=== PATIENT | female | born 1940 | race Caucasian/White ===

== ENCOUNTER 2017-04-08 13:30 | Inpatient (IN) | payer MEDICARE, BC ==
[~2017-04-08] VITALS: Ht 162.6 cm; Wt 135.2 kg
[2017-04-08] MEDS ORDERED: CEPHALEXIN CAP 500MG PO (13:51)
[2017-04-08] MEDS ORDERED: METFORMIN TAB 1000MG PO (13:51)
[2017-04-08] MEDS ORDERED: [UNRECOGNIZED DRUG - CODE] TOP (13:51)
[2017-04-08] MEDS ORDERED: METOPROLOL SUCC ER 50 MG TAB PO (13:51)
[2017-04-08] MEDS ORDERED: LEVOTHYROXINE 125 MCG PO (13:51)
[2017-04-08] MEDS ORDERED: FLUCONAZOLE 100 MG PO (13:51)
[2017-04-08] MEDS ORDERED: DILTIAZEM 24HR ER 240 MG CAP PO (13:51)
[2017-04-08] MEDS ORDERED: PHENAZOPYRIDINE HCL 100 MG TABLET PO ONE (14:45)
--- NOTE | 2017-04-08 14:50 | NUR ---
Pt states she is unable to provide urine specimen at this time.
[2017-04-08] MEDS ORDERED: PHENAZOPYRIDINE HCL 100 MG TABLET ONE (15:03)
[2017-04-08 15:21] LABS: BASOPHILS % (AUTO) 0.9 % (0.0-2.0); EOSINOPHILS # (AUTO) 0.1 K/uL (0.0-0.7); EOSINOPHILS % (AUTO) 2.3 % (0.0-7.0); HEMATOCRIT 39.9 % (37-47); HEMOGLOBIN 13.1 G/DL (12.0-16.0); LYMPHOCYTES # (AUTO) 1.5 K/UL (0.8-4.8); LYMPHOCYTES % (AUTO) 29.3 % (20.5-51.5); MEAN CORPUSCULAR HEMOGLOBIN 29.7 UUG (27.0-31.0); MEAN CORPUSCULAR HGB CONC 33 g/dL (32.0-37.0); MEAN CORPUSCULAR VOLUME 90.7 FL (81.0-99.0); MONOCYTES # (AUTO) 0.5 K/UL (0.1-1.30); MONOCYTES % (AUTO) 9.3 % (0.0-11.0); NEUTROPHILS # (AUTO) 3.2 K/UL (1.8-8.9); NEUTROPHILS % (AUTO) 58.2 % (38.5-71.5); PLATELET COUNT (AUTO) 210 K/UL (150-450); WHITE BLOOD COUNT (AUTO) 5.3 K/UL (4.0-11.2)
[2017-04-08 15:27] LABS: CARBON DIOXIDE 29 mmol/L (21-32); CHLORIDE 106 mmol/L (98-107); CREATININE 1.2 mg/dL (0.6-1.3); GLUCOSE 207 mg/dL (74-106); POTASSIUM 4.4 mmol/L (3.5-5.1); UREA NITROGEN, BLOOD 30 mg/dL (7-18)
[2017-04-08] MEDS ORDERED: IV NORMAL SALINE 250 ML IV ONE (15:30)
[2017-04-08] MEDS ORDERED: NORMAL SALINE FLUSH 10 ML DISP.SYRIN ONE (15:30)
[2017-04-08] MEDS ORDERED: IOHEXOL 350 100 ML INFUS..BTL ONE (15:30)
[2017-04-08 15:39] LABS: ALANINE AMINOTRANSFERASE 19 U/L (14-59); ALKALINE PHOSPHATASE 77 U/L (50-136); ASPARTATE AMINOTRANSFERASE 16 U/L (15-37); BILIRUBIN,DIRECT 0.2 mg/dL (0.0-0.2); BILIRUBIN,TOTAL 0.8 mg/dL (0.2-1.0); TOTAL PROTEIN, SERUM 7.4 g/dL (6.4-8.2)
--- NOTE | 2017-04-08 16:00 | NUR ---
Pt to CT via TOSHIA bernabe noted at this time.
--- NOTE | 2017-04-08 17:00 | NUR ---
Pt is sleeping with no s/s of acute distress noted.
--- NOTE | 2017-04-08 17:47 | NUR ---
Pt resting in [facility] with NAD noted, disposition pending.
--- NOTE | 2017-04-08 18:10 | NUR ---
Pt ambulatory to restroom with walker, urine specimen obtained and sent to lab.
--- NOTE | 2017-04-08 18:30 | NUR ---
Per Dr. Ann pt to be admitted to tele, Dr. Victor accepting physician.
[2017-04-08 18:36] LABS: *BILIRUBIN,URIN NEGATIVE (NEGATIVE); *BLOOD, URINE NEGATIVE (NEGATIVE); *CLARITY,URINE SLIGHTLY CLOUDY (CLEAR); *COLOR,URINE DARK YELLOW (YELLOW); *KETONES,URINE NEGATIVE (NEGATIVE); *PROTEIN,URINE NEGATIVE (NEGATIVE); *UROBILINOGEN,URINE 0.2 E.U./dl (NORMAL); LEUKOCYTE ESTERASE ,URINE NEGATIVE (NEGATIVE); NITRITE, URINE POSITIVE (NEGATIVE); PH,URINE 5.5 (5.0-8.0); UGLUCOSE TRACE (NEGATIVE)
[2017-04-08] MEDS ORDERED: ASPIRIN 325 MG TABLET PO ONE (18:45)
[2017-04-08 18:46] LABS: RBC,URINE 0-3 /HPF (0-3); SQUAMOUS EPITHELIAL CELL,UR FEW /HPF (NONE SEEN); WBC,URINE 0-3 /HPF (0-3)
[2017-04-08 18:47] LABS: BACTERIA,URINE MODERATE /HPF (NONE SEEN)
[2017-04-08] MEDS ORDERED: ONDANSETRON 4 MG/2 ML VIAL IV PRN (19:45)
[2017-04-08] MEDS ORDERED: ACETAMINOPHEN 325 MG TABLET PO PRN (19:45)
[2017-04-08] MEDS ORDERED: HYDROCODONE/APAP 5-325MG TABLET PO PRN (19:45)
[2017-04-08] MEDS ORDERED: MAGNESIUM HYDROXIDE 30 ML LIQUID UDC PO PRN (19:45)
[2017-04-08] MEDS ORDERED: Z GUARD REMEDY PASTE 57 GM TUBE TOP PRN (19:45)
[2017-04-08] MEDS ORDERED: ASPIRIN 325 MG TABLET ONE (19:52)
--- NOTE | 2017-04-08 19:52 | NUR ---
Report called to [facility] Handy. Preparing to transfer pt to the floor.
[2017-04-08] MEDS ORDERED: CEFTRIAXONE 1 G in IV DEXTROSE 5% 50 ML IV SCH (20:00)
[2017-04-08] MEDS ORDERED: BLOOD SUGAR DIAGNOSTIC 1 EACH STRIP VI SCH (20:00)
[2017-04-08] MEDS ORDERED: hydrALAZINE HCL 25 MG TABLET PO PRN (20:00)
[2017-04-08 20:45] VITALS: BP 143/43
--- NOTE | 2017-04-08 20:50 | NUR ---
NSG: PT RECEIVED A/O X 4 FR ER VIA GURNEY WITH DX OF TIA. DENIES ANY DISCOMFORT, FACIAL NUMBNESS, TINGLING. NO S/S OF NEUROLOGICAL DEFICIT. V/S STABLE. CONT TO MONITOR.
[2017-04-08] MEDS ORDERED: FURO-151 PO (21:09)
[2017-04-08] MEDS: ENOXAPARIN SODIUM 40 MG/0.4 ML DISP.SYRIN SQ SCH ×2 (21:45→22:40)
[2017-04-08] MEDS ORDERED: CEFTRIAXONE 1 G VIAL ONE (22:33)
[2017-04-08] MEDS: METOPROLOL TARTRATE 25 MG TABLET PO SCH (22:39)
[2017-04-08] MEDS: ATORVASTATIN 20 MG TABLET PO SCH (22:39)
[2017-04-08] MEDS: FUROSEMIDE 40 MG/4 ML VIAL IV SCH (22:40)
--- NOTE | 2017-04-08 22:40 | NUR ---
nsg: inserted f/c per md order.
[2017-04-08] MEDS ORDERED: ATORVASTATIN 20 MG TABLET ONE (22:48)
[2017-04-08] MEDS ORDERED: FUROSEMIDE 40 MG/4 ML VIAL ONE (22:48)
[2017-04-08] MEDS ORDERED: METOPROLOL TARTRATE 25 MG TABLET ONE (22:49)
[2017-04-08] MEDS ORDERED: ENOXAPARIN SODIUM 40 MG/0.4 ML DISP.SYRIN SQ ONE (22:50)
[2017-04-08] MEDS: DILTIAZEM HCL CD 240 MG CAP.SR.24H PO SCH (23:20)
[2017-04-08] MEDS: BLOOD SUGAR DIAGNOSTIC 1 EACH STRIP VI SCH (23:20)
--- NOTE | 2017-04-08 23:21 | NUR ---
nsg: pt refused acu check at this time. stated her sugar was checked in er, 137mg/dl.
[2017-04-08] MEDS ORDERED: DILTIAZEM HCL CD 240 MG CAP.SR.24H PO ONE (23:32)
[2017-04-09 00:03] VITALS: BP 132/43
[2017-04-09 04:00] VITALS: BP 117/52
--- NOTE | 2017-04-09 05:30 | NUR ---
nsg: ALL NEEDS ATTENDED. NO ACUTE DISTRESS NOTED. TELE, SINUS BRADYCARDIA WITH HR 57. CONT TO MONITOR.
[2017-04-09] MEDS: BLOOD SUGAR DIAGNOSTIC 1 EACH STRIP VI SCH ×5 (06:28→20:43)
[2017-04-09 07:04] LABS: BASOPHILS % (AUTO) 0.8 % (0.0-2.0); EOSINOPHILS # (AUTO) 0.1 K/uL (0.0-0.7); EOSINOPHILS % (AUTO) 2.6 % (0.0-7.0); HEMATOCRIT 36.6 % (31.2-41.9); HEMOGLOBIN 12.4 g/dL (10.9-14.3); LYMPHOCYTES # (AUTO) 1.4 K/uL (20.0-40.0); LYMPHOCYTES % (AUTO) 29.7 % (20.5-51.5); MEAN CORPUSCULAR HGB CONC 34 g/dL (32.3-35.6); MEAN CORPUSCULAR VOLUME 91.3 fL (75.5-95.3); MONOCYTES # (AUTO) 0.4 K/uL (2.0-10.0); MONOCYTES % (AUTO) 8.6 % (0.0-11.0); NEUTROPHILS # (AUTO) 2.7 K/uL (1.8-8.9); NEUTROPHILS % (AUTO) 58.3 % (38.5-71.5); PLATELET COUNT (AUTO) 167 K/uL (179-408); RED BLOOD CELL COUNT(AUTO) 4.01 MIL/uL (3.63-4.92); WHITE BLOOD COUNT (AUTO) 4.7 K/uL (3.8-11.8)
[2017-04-09 07:19] LABS: CARBON DIOXIDE 26 mmol/L (21-32); CHLORIDE 107 mmol/L (98-107); CHOLESTEROL 160 mg/dL (<200); CREATININE 1.2 mg/dL (0.6-1.3); GLUCOSE 147 mg/dL (74-106); HDL CHOLESTEROL 55 mg/dL (40-60); MAGNESIUM 1.9 mg/dL (1.8-2.4); PHOSPHOROUS 4.1 mg/dL (2.5-4.9); POTASSIUM 3.8 mmol/L (3.5-5.1); TRIGLYCERIDES 84 MG/DL (30-150); UREA NITROGEN, BLOOD 24 mg/dL (7-18)
--- NOTE | 2017-04-09 08:30 | NUR ---
RECEIVED PATIENT IN BED AWAKE ALERT AND ORIENTED DENIES PAIN OR DISCOMFORTS AT THIS TIME ON ROOM AIR WITH NO SHORTNESS OF BREATH PATIENT REFUSED SOME OF HER AM MEDICATIONS STATED THAT SHE WILL LET ME KNOW WHEN SHE IS READY FOR THEM.PATIENTS RIGHT TO REFUSE RESPECTED AT THIS TIME
[2017-04-09] MEDS: DILTIAZEM HCL CD 240 MG CAP.SR.24H PO SCH ×2 (08:52→17:48)
[2017-04-09] MEDS: LEVOTHYROXINE SODIUM 125 MCG TABLET PO SCH (08:52)
[2017-04-09] MEDS: FUROSEMIDE 40 MG/4 ML VIAL IV SCH ×2 (09:00→17:50)
[2017-04-09] MEDS: METOPROLOL TARTRATE 25 MG TABLET PO SCH ×2 (09:00→20:34)
[2017-04-09] MEDS: ASPIRIN 81 MG TAB.CHEW PO SCH (09:00)
[2017-04-09 11:29] VITALS: BP 120/60
--- NOTE | 2017-04-09 11:36 | NUR ---
BLOOD SUGAR AT THIS TIME IS 182 PATIENT HAS NO SLIDING SCALE COVERAGE DR REAGAN NOTIFIED AND SHE STATED WILL SEE PATIENT
[2017-04-09] MEDS ORDERED: DEXTROSE 50% 50 ML DISP.SYRIN IV PRN (12:30)
[2017-04-09] MEDS: INSULIN REGULAR, HUMAN 300 UNIT/3 ML VIAL SQ PRN ×2 (13:13→20:46)
--- NOTE | 2017-04-09 14:00 | NUR ---
BILATERAL LOWER EXT DUPLEX DONE ORDERED AWAITING FOR RESULTS.
[2017-04-09 16:11] VITALS: BP 145/62
--- NOTE | 2017-04-09 17:50 | NUR ---
PATIENT HAD REFUSED HER CARDIZEM AND LASIX THIS AM NOW WANTS THEM SO I GAVE THEM TO HER ORDERED.
--- NOTE | 2017-04-09 17:52 | NUR ---
BOTH LOWER EXT ELEVATED ON PILLOWS DUE TO EDEMA
[2017-04-09 20:07] VITALS: BP 115/62
[2017-04-09] MEDS: ATORVASTATIN 20 MG TABLET PO SCH (20:33)
[2017-04-09] MEDS: ENOXAPARIN SODIUM 40 MG/0.4 ML DISP.SYRIN SQ SCH (20:48)
[2017-04-09] MEDS: CEFTRIAXONE 1 G in IV DEXTROSE 5% 50 ML IV SCH (21:46)
[2017-04-10] VITALS: BP 122/61
[2017-04-10 04:00] VITALS: BP 118/61
[2017-04-10 06:40] LABS: BASOPHILS % (AUTO) 0.8 % (0.0-2.0); EOSINOPHILS # (AUTO) 0.1 K/uL (0.0-0.7); EOSINOPHILS % (AUTO) 3.1 % (0.0-7.0); HEMATOCRIT 36.3 % (31.2-41.9); HEMOGLOBIN 12.1 g/dL (10.9-14.3); LYMPHOCYTES # (AUTO) 1.6 K/uL (20.0-40.0); LYMPHOCYTES % (AUTO) 34.3 % (20.5-51.5); MEAN CORPUSCULAR HEMOGLOBIN 30.5 uug (24.7-32.8); MEAN CORPUSCULAR HGB CONC 33 g/dL (32.3-35.6); MEAN CORPUSCULAR VOLUME 91.4 fL (75.5-95.3); MONOCYTES # (AUTO) 0.3 K/uL (2.0-10.0); MONOCYTES % (AUTO) 7.5 % (0.0-11.0); NEUTROPHILS # (AUTO) 2.5 K/uL (1.8-8.9); NEUTROPHILS % (AUTO) 54.3 % (38.5-71.5); PLATELET COUNT (AUTO) 156 K/uL (179-408); RED BLOOD CELL COUNT(AUTO) 3.97 MIL/uL (3.63-4.92); WHITE BLOOD COUNT (AUTO) 4.6 K/uL (3.8-11.8)
[2017-04-10 06:51] LABS: CARBON DIOXIDE 28 mmol/L (21-32); CHLORIDE 106 mmol/L (98-107); CREATININE 1.1 mg/dL (0.6-1.3); GLUCOSE 147 mg/dL (74-106); POTASSIUM 3.9 mmol/L (3.5-5.1); UREA NITROGEN, BLOOD 22 mg/dL (7-18)
[2017-04-10] MEDS: BLOOD SUGAR DIAGNOSTIC 1 EACH STRIP VI SCH ×4 (07:13→20:37)
[2017-04-10] MEDS: LEVOTHYROXINE SODIUM 125 MCG TABLET PO SCH (07:15)
[2017-04-10] MEDS: INSULIN REGULAR, HUMAN 300 UNIT/3 ML VIAL SQ PRN ×2 (07:55→12:22)
[2017-04-10] MEDS: ASPIRIN 81 MG TAB.CHEW PO SCH (09:00)
[2017-04-10] MEDS: METOPROLOL TARTRATE 25 MG TABLET PO SCH ×2 (09:00→20:36)
[2017-04-10] MEDS: DILTIAZEM HCL CD 240 MG CAP.SR.24H PO SCH ×2 (09:00→18:09)
[2017-04-10] MEDS: FUROSEMIDE 40 MG/4 ML VIAL IV SCH (09:10)
--- NOTE | 2017-04-10 09:40 | NUR ---
ASSISTED TO THE BATHROOM AMBULATED USING HER W/CHAIR WALKER AND HAD A LARGE BOWEL MOVEMENT AND ASSISTED BACK INTO BED BOTH LOWER EXT STILL VERY SWOLLEN ENCOURAGED TO ELEVATE ON THE PILLOW NO SOB NOT IN DISTRESS AT THIS TIME.
[2017-04-10 12:19] VITALS: BP 139/65
--- NOTE | 2017-04-10 14:00 | NUR ---
PATIENT SEEN AND EXAMINED BY DR LUNA WITH NO NEW ORDERS AT THIS TIME.
[2017-04-10 15:17] VITALS: BP 146/65
--- NOTE | 2017-04-10 18:00 | NUR ---
YOUNG CATH REMAINS INTACT WITH ADEQUTE URINE OUTPUT NO ADVERSE OR ALLERGIC REACTIONS FROM THE ATB ORDERED.MADE COMFORTABLE.
--- NOTE | 2017-04-10 19:10 | NUR ---
Sleeping duriing initial rounds. Safety measures and fall precaution maintained. No s/s of pain/discomforts presented. Will continue to monitor.
[2017-04-10 20:22] VITALS: BP 129/51
[2017-04-10] MEDS: ATORVASTATIN 20 MG TABLET PO SCH (20:37)
[2017-04-10] MEDS: ENOXAPARIN SODIUM 40 MG/0.4 ML DISP.SYRIN SQ SCH (20:37)
--- NOTE | 2017-04-10 21:00 | NUR ---
Patient refused all meds due at this time. Metoprolol was not given due to low heart rate of 58 bpm. Will recheck again later.
[2017-04-10] MEDS: CEFTRIAXONE 1 G in IV DEXTROSE 5% 50 ML IV SCH (21:45)
--- NOTE | 2017-04-10 22:00 | NUR ---
HR rechecked, still low on the 59bpm. Patient aware. Metoprolol not given.
--- NOTE | 2017-04-11 05:07 | NUR ---
Slept well. No complaint presented all night. All needs attended and met. Safety measures and fall precaution maintained. No significant event reported. Continue current plan of care.
[2017-04-11] MEDS: LEVOTHYROXINE SODIUM 125 MCG TABLET PO SCH (06:13)
[2017-04-11] MEDS: BLOOD SUGAR DIAGNOSTIC 1 EACH STRIP VI SCH ×4 (06:17→21:19)
[2017-04-11 06:47] VITALS: BP 132/56
--- NOTE | 2017-04-11 07:45 | NUR ---
PATIENT IS AWAKE ALERT AND ORIENTED DENIES PAIN OR DISCOMFORTS AT THIS TIME ON ROOM AIR WITH NO SHORTNESS OF BREATH NO S/S OF HYPO/HYPERGLYCEMIC REACTIONS AT THIS TIME.YOUNG CATH IS INTACT WITH NO HEMATURIA. BOTH LOWER EXT REMAINS SWOLLEN ELEVATED IN 2 PILLOWS MADE COMFORTABLE.
[2017-04-11] MEDS: INSULIN REGULAR, HUMAN 300 UNIT/3 ML VIAL SQ PRN ×3 (07:59→21:22)
[2017-04-11] MEDS: METOPROLOL TARTRATE 25 MG TABLET PO SCH ×2 (09:00→21:11)
[2017-04-11] MEDS: DILTIAZEM HCL CD 240 MG CAP.SR.24H PO SCH (09:00)
[2017-04-11] MEDS: ASPIRIN 81 MG TAB.CHEW PO SCH (09:00)
[2017-04-11] MEDS: FUROSEMIDE 40 MG/4 ML VIAL IV SCH (09:16)
[2017-04-11 10:56] VITALS: BP 94/52
[2017-04-11 15:00] VITALS: BP 166/72
--- NOTE | 2017-04-11 15:30 | NUR ---
PATIENT SEEN AND EXAMINED BY DR GARCIA WITH NO NEW ORDERS AT THIS TIME DENIES PAIN OR DISCOMFORTS CONTINUE TO ENCOURAGE PATIENT TO ELEVATE BOTH LOWER EXT AND SHE EXPRESSED UNDERSTANDING
--- NOTE | 2017-04-11 17:14 | NUR ---
PATIENT STATED THAT DR GARCIA IS PLANNING TO SEND HER TO ACUTE REHAB FOR MORE PHYSICAL THERAPY AWAITING FOR ORDERS AND ACCEPTANCE BY THE REHAB
--- NOTE | 2017-04-11 18:21 | NUR ---
PATIENT SEEN AND EXAMINED BY DR OLIVARES AD WRITER WITH NEW ORDERS AND NOTED.MD AWARE THAT PATIENT IS ALESSANDRO AT TIMES WITH PARAMETERS FOR HER BETA BLOCKERS
--- NOTE | 2017-04-11 19:40 | NUR ---
PT RECEIVED IN BED, AWAKE. A/OX3. ABLE TO MAKE NEEDS KNOWN. V/S STABLE. IN NO ACUTE DISTRESS. NO C/O PAIN AT THIS TIME. IV INTACT AND PATENT. YOUNG INTACT AND PATENT, CLEAR YELLOW URINE SEEN. SAFETY MEASURES IMPLEMENTED. CALL LIGHT WITHIN REACH.
[2017-04-11 20:00] VITALS: BP 144/66
[2017-04-11] MEDS: ATORVASTATIN 20 MG TABLET PO SCH (21:10)
[2017-04-11] MEDS: CEFTRIAXONE 1 G in IV DEXTROSE 5% 50 ML IV SCH (21:11)
[2017-04-12 05:09] VITALS: BP 152/68
--- NOTE | 2017-04-12 05:45 | NUR ---
END OF SHIFT NOTES. PT SLEPT INTERMITTENTLY THROUGHOUT SHIFT. IN STABLE CONDITION. PT ACCIDENTLY PULLED OUT IV, BUT PT REFUSED IV RESTART. IV ABX INFUSED. YOUNG CATH INTACT AND PATENT, SEEN WITH CLEAR YELLOW URINE. BILATERAL LEGS ELEVATED. ALL NEEDS ATTENDED. SAFETY MAINTAINED. CALL LIGHT WITHIN REACH.
[2017-04-12] MEDS: LEVOTHYROXINE SODIUM 125 MCG TABLET PO SCH (06:04)
[2017-04-12] MEDS: BLOOD SUGAR DIAGNOSTIC 1 EACH STRIP VI SCH ×2 (06:41→11:37)
[2017-04-12 07:45] LABS: CARBON DIOXIDE 26 mmol/L (21-32); CHLORIDE 107 mmol/L (98-107); GLUCOSE 134 mg/dL (74-106); PHOSPHOROUS 3.7 mg/dL (2.5-4.9); POTASSIUM 4.3 mmol/L (3.5-5.1); UREA NITROGEN, BLOOD 21 mg/dL (7-18)
[2017-04-12 07:54] LABS: BASOPHILS # (AUTO) 0.3 K/uL (0.0-8.0); BASOPHILS % (AUTO) 4.7 % (0.0-2.0); EOSINOPHILS # (AUTO) 0.2 K/uL (0.0-0.7); EOSINOPHILS % (AUTO) 3.2 % (0.0-7.0); HEMATOCRIT 39.8 % (37-47); HEMOGLOBIN 13.3 G/DL (12.0-16.0); LYMPHOCYTES # (AUTO) 1.5 K/UL (0.8-4.8); LYMPHOCYTES % (AUTO) 26.3 % (20.5-51.5); MEAN CORPUSCULAR HEMOGLOBIN 30.2 UUG (27.0-31.0); MEAN CORPUSCULAR HGB CONC 33 g/dL (32.0-37.0); MEAN CORPUSCULAR VOLUME 90.4 FL (81.0-99.0); MONOCYTES # (AUTO) 0.5 K/UL (0.1-1.30); MONOCYTES % (AUTO) 8.2 % (0.0-11.0); NEUTROPHILS # (AUTO) 3.3 K/UL (1.8-8.9); NEUTROPHILS % (AUTO) 57.6 % (38.5-71.5); PLATELET COUNT (AUTO) 165 K/UL (150-450); RED BLOOD CELL COUNT(AUTO) 4.41 MIL/UL (4.2-5.4); WHITE BLOOD COUNT (AUTO) 5.8 K/UL (4.0-11.2)
[2017-04-12] MEDS: METOPROLOL TARTRATE 25 MG TABLET PO SCH (08:26)
[2017-04-12] MEDS: INSULIN REGULAR, HUMAN 300 UNIT/3 ML VIAL SQ PRN ×2 (08:29→11:41)
[2017-04-12] MEDS ORDERED: FUROSEMIDE 40 MG TABLET PO SCH (09:00)
[2017-04-12] MEDS ORDERED: ATOR20TA PO (09:09)
[2017-04-12] MEDS ORDERED: METO25TA6 PO (09:13)
[2017-04-12 11:39] VITALS: BP 121/76
--- NOTE | 2017-04-12 14:44 | NUR ---
DISCHARGE NOTED, PROTOCOL FOLLOWED. PT REFUSING SNF PLACEMENT AND HOME HEALTH ASSESSMENT. BEING DISCHARGED HOME. YOUNG REMOVED, PT VOIDED. EDUCATION PROVIDED, PT VERBALIZED UNDERSTANDING, ID BAND REMOVED. PT LEFT AMBULATORY WITH WALKER, TO RIDE BUS.
== END 2017-04-12 14:45 | disposition home or self-care (01) | DRG 69 ==
LOC: ER 13:30 → TELE 20:04 → MED 04-10 16:30
PROVIDERS: ADMIT Internal Medicine; ATTEND Internal Medicine
DX: G45.9 Transient cerebral ischemic attack, unspecified (principal); N17.0 Acute kidney failure with tubular necrosis; D76.3 Other histiocytosis syndromes; I50.33 Acute on chronic diastolic (congestive) heart failure; Z68.43 Body mass index [BMI] 50.0-59.9, adult; N39.0 Urinary tract infection, site not specified; I67.1 Cerebral aneurysm, nonruptured; I48.0 Paroxysmal atrial fibrillation; E66.01 Morbid (severe) obesity due to excess calories; I65.23 Occlusion and stenosis of bilateral carotid arteries; Z71.3 Dietary counseling and surveillance; K21.9 Gastro-esophageal reflux disease without esophagitis; E03.9 Hypothyroidism, unspecified; I11.0 Hypertensive heart disease with heart failure; Z87.440 Personal history of urinary (tract) infections; I48.2 Chronic atrial fibrillation; E78.5 Hyperlipidemia, unspecified; E11.51 Type 2 diabetes mellitus with diabetic peripheral angiopathy without gangrene; Z82.49 Family history of ischemic heart disease and other diseases of the circulatory system; Z86.73 Personal history of transient ischemic attack (TIA), and cerebral infarction without residual deficits; I25.10 Atherosclerotic heart disease of native coronary artery without angina pectoris; R60.0 Localized edema
CPT/HCPCS: 36415; 70030-TC; 70496; 71010; 83605; 83735; 84100; 85025; 85651; 85730; 87040; 92610; 93005; 93307; 97116; 97530; 97535; A4663; J0696; J1650; J1815; J1940; J3490; J7050; J7060; Q9967